=== PATIENT | female | born 1990 | race Caucasian/White ===

== ENCOUNTER 2024-07-25 13:41 | Emergency (ER) | payer MEDICAID ==
[~2024-07-25] VITALS: Ht 152.4 cm; Wt 59.0 kg
[2024-07-25 14:02] VITALS: BP 95/45; PULSE 125; RESP 22; TEMP 98.3; O2SAT 99
[2024-07-25] MEDS ORDERED: NACL 0.9% 1,000 ML IV SCH (14:25)
[2024-07-25 15:30] VITALS: BP 105/70; PULSE 89; RESP 20; TEMP 97.3; O2SAT 99
== END 2024-07-25 16:33 ==
LOC: MED 13:41
DX: Z02.89 Encounter for other administrative examinations (principal); F10.10 Alcohol abuse, uncomplicated; F17.200 Nicotine dependence, unspecified, uncomplicated; Y90.9 Presence of alcohol in blood, level not specified; V89.2XXA Person injured in unspecified motor-vehicle accident, traffic, initial encounter; Y93.89 Activity, other specified; Y92.410 Unspecified street and highway as the place of occurrence of the external cause; Y99.8 Other external cause status
CPT/HCPCS: 99283; J7030